=== PATIENT | male | born 1985 | race Caucasian/White ===

== ENCOUNTER 2016-08-17 11:47 | Emergency (ER) | payer OTHER ==
[~2016-08-17] VITALS: Ht 165.1 cm; Wt 88.5 kg
[~2016-08-17 11:47] MED LIST: ALBU6.7H INH
[2016-08-17 11:49] VITALS: BP 152/72; PULSE 92; RESP 20; TEMP 97.7; O2SAT 98
--- NOTE | 2016-08-17 11:55 | PD ---
Physical Exam Date Seen by Provider: August 17, 2016 Time Seen by Provider: 11:52 Narrative Pt is a 31 year old male presenting to the ED with possible allergic reaction. He feels dizzy, palpitations, hot flashes, nausea. Pt was rx fluticasone nasal spray and feels his symptoms are related to this. No rashes or wheezing but feels SOB. VSS, awaiting bed placement. Data Data Last Documented VS Vital Signs Date Time Temp Pulse Resp B/P Pulse Ox O2 Delivery O2 Flow Rate FiO2 08/17/16 11:49 97.7 92 20 152/72 98 Room Air [facility] Supervised Visit with NATO: Radha Garcia August 17, 2016 11:55
--- NOTE | 2016-08-17 12:20 | PD ---
HPI Chief Complaint: Allergic/Adverse Reaction Time Seen by Provider: 12:06 Travel History International Travel<30 days: No Contact w/Intl Traveler<30days: No Traveled to known affect area: No History of Present Illness HPI This is a 31 year old male who presents to the emergency department having used fluticasone yesterday for allergies, and following that he started to have throat swelling and tightness, constant, moderate severity, associated with left sided chest pain, constant and persistent throughout today. Pt. reports currently his symptoms have resolved. Pt. reports he had similar symptoms when he took advil 2 years ago. Pt. does have a history of allergies in the past. Pt. was concerned he may have been having an allergic reaction. PFSH Past Medical History Diminished Hearing: No Social History Alcohol Use: No Tobacco Use: No Substance Use: No Allergies-Medications (Allergen,Severity, Reaction): Coded Allergies: Advil (Unverified Allergy, Severe, Swelling, 08/17/16) Reported Meds & Prescriptions Reported Meds & Active Scripts Active Proventil Hfa (Albuterol Sulfate) 6.7 Gm Aero 2 Puff INH Q4H PRN * SHAKE WELL BEFORE USE * Review of Systems Except as stated in HPI: all other systems reviewed are Neg Physical Exam Narrative GENERAL:Well appearing, no acute distress SKIN: Focused skin assessment warm and dry. HEAD: Atraumatic. Normocephalic. EYES: Pupils equal and round. No injection or drainage. ENT: Moist mucous membranes NECK: Trachea midline. CARDIOVASCULAR: Regular rate and rhythm. No murmur appreciated. RESPIRATORY: Clear to auscultation. Breath sounds equal bilaterally. GASTROINTESTINAL: Abdomen soft, non-tender, nondistended. MUSCULOSKELETAL: No obvious deformities. NEUROLOGICAL: Awake and alert. No obvious cranial nerve deficits. Moving all extremities. PSYCHIATRIC: Appropriate mood and affect; insight and judgment normal. Data Data Last Documented VS Vital Signs Date Time Temp Pulse Resp B/P Pulse Ox O2 Delivery O2 Flow Rate FiO2 08/17/16 12:35 81 18 95 Room Air 08/17/16 11:49 97.7 152/72 Orders Electrocardiogram (08/17/16 ) Electrocardiogram (08/17/16 ) MDM Medical Decision Making Medical Screen Exam Complete: Yes Emergency Medical Condition: Yes Interpretation(s) Afebrile, mild tachycardia, hypertensive EKG: nsr, no st changes Differential Diagnosis acute allergic reaction, arrhythmia, medication side effect Narrative Course This is a 31-year-old male who presents to the emergency department with palpitations, some throat tightness and chest discomfort ever since he started taking fluticasone nasal spray yesterday. Currently he says his symptoms are completely resolved. He may have had a mild allergic reaction or adverse reaction to this medication. I don't think there is any indication for treatment at this time. His EKG is reassuring with no sign of arrhythmia. Patient has an appointment with his primary care physician later today which he will keep. He will be discharged with an albuterol inhaler. Diagnosis Primary Impression: Adverse effects of medication Qualified Code: T88.7XXA - Adverse effects of medication, initial encounter Patient Instructions: General Instructions Additional Instructions: If you develop severe chest pain, shortness of breath, sweating, lightheadedness , dizziness or difficulty breathing return to the emergency department immediately. Followup with your primary care physician in 2-3 days if your symptoms are not resolved. Med/Other Pt SpecificInfo: Prescription(s) given Scripts Albuterol 8.5 GM Inh (Proair Hfa 8.5 GM Inh)90 Mcg/Act Aer2 Puff INH Q4-6H PRN ( SHORTNESS OF BREATH) #1 INHALER Ref 0 108 mcg/actuation Prov:Alis Hilario MD 08/17/16 Disposition: 01 DISCHARGE HOME Condition: Stable Alis Hilario MD August 17, 2016 12:20
[2016-08-17] MEDS ORDERED: ALBUAER3 INH (12:45)
--- NOTE | 2016-08-17 15:18 | EKG ---
Date Performed: 08/17/2016 Time Performed: 12:13:01 PTAGE: 31 years EKG: Sinus rhythm There is isolated ST elevation in lead V2. This may represent early repolarization although injury cannot be ruled out. Clinical correlation suggested. NO PREVIOUS TRACING DOCTOR: Jose Elias Garcia Interpretating Date/Time 08/17/2016 15:17:47
[2016-08-23] MEDS ORDERED: ALLE12TA2 PO (14:58)
== END 2016-08-17 13:55 | disposition home or self-care (01) ==
LOC: NEPC 11:47
DX: T88.7XXA Unspecified adverse effect of drug or medicament, initial encounter (principal); X58.XXXA Exposure to other specified factors, initial encounter; R00.0 Tachycardia, unspecified
CPT/HCPCS: 93005